=== PATIENT | female | born 1945 | race Caucasian/White ===

== ENCOUNTER 2017-08-23 13:50 | Emergency (ER) | payer OTHER ==
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
[2017-08-23 14:32] VITALS: BP 152/75; PULSE 68; TEMP 98.3; BMI 29.5
[2017-08-23] MEDS ORDERED: ONDANSETRON *ODT* 4 MG TABLET SL ONE (14:37)
[2017-08-23] MEDS ORDERED: ONDANSETRON *ODT* 4 MG TABLET ONE (14:38)
== END 2017-08-23 17:17 | disposition home or self-care (01) ==
LOC: FER 13:50
PROC: 2W3RX1Z Immobilization of Left Lower Leg using Splint (ICD-10-PCS; principal; 2017-08-23)
DX: S80.02XA Contusion of left knee, initial encounter (principal); W10.0XXA Fall (on)(from) escalator, initial encounter; Y93.89 Activity, other specified; Y92.522 Railway station as the place of occurrence of the external cause; E78.00 Pure hypercholesterolemia, unspecified; J45.909 Unspecified asthma, uncomplicated
CPT/HCPCS: 70450-TC; 72125-TC; 73552-TC-LT-FY; 73562-TC-LT-FY; 99282-25; Q0162